=== PATIENT | female | born 1995 | race Asian ===

== ENCOUNTER 2019-06-08 15:17 | Day surgery (SDC) | payer OTHER ==
[~2019-06-08 15:17] MED LIST: Atropine Sulfate 1% Ophth Ointment 3.5 gm Tube ONE; Bupivacaine PF 0.75% SDV 10 ML ONE; Dexamethasone 20 MG/5 ML VIAL ONE; Lidocaine 1% PF 5 ML VIAL ONE; Lidocaine 4% PF 5 ML AMP ONE; Maxitrol 0.1% Opth Oint 3.5 GM TUBE ONE; Ondansetron PF 4 MG/2 ML Vial ONE; PROPOFOL 200 MG/20 ML VIAL ONE; Triamcinolone 40 MG/ML VIAL ONE
[2019-06-08] MEDS ORDERED: Cyclopentolate 1% Opth Drop 2 ML BOT FS SCH (15:37)
[2019-06-08] MEDS ORDERED: Phenylephrine 2.5% Ophth Soln 5 ML BOT FS SCH (15:37)
[2019-06-08] MEDS ORDERED: Cyclopentolate 1% Opth Drop 2 ML BOT ONE (15:51)
[2019-06-08] MEDS ORDERED: Phenylephrine 2.5% Ophth Soln 5 ML BOT ONE (15:51)
[2019-06-08 15:53] LABS: BHCG - Serum Negative (NEGATIVE); Pregs Control Background? CLEAR/WHITE (CLR/WHITE); Pregs Control Bar Appear? YES (CONTROL BAR)
[2019-06-08] MEDS ORDERED: Midazolam HCl 2 mg/2 ml Vial ONE (16:41)
[2019-06-08] MEDS ORDERED: Fentanyl 100 MCG/2 ML VIAL ONE (17:31)
[2019-06-08] MEDS ORDERED: Famotidine/PF 20 mg/2ml Vial ONE (17:50)
--- NOTE | 2019-06-08 20:31 | OP ---
DATE OF PROCEDURE: 06/08/2019 PREOPERATIVE DIAGNOSES: Rhegmatogenous retinal detachment, left eye; lattice degeneration, right eye. PROCEDURES PERFORMED: Scleral buckle, left eye and indirect laser to lattice degeneration, right eye. ANESTHESIA: General endotracheal anesthesia. DESCRIPTION OF PROCEDURE: The patient was identified in the preoperative holding area. Appropriate informed consent for the planned surgical procedure on both eyes was obtained. The patient was taken to the operative suite, where general endotracheal anesthesia was initiated. Retrobulbar block was placed in the left eye. 360 laser was placed using indirect laser delivery device in the right eye for a total of 645 spots. In the left eye, conjunctiva was prepped and draped in usual sterile manner for ophthalmic surgery. Conjunctival peritomy was created 360, and 3 spots of cryo were placed over the inferior break. A #42 band was encircled around the eye and ligated end-to-end with 3083 sleeve, fixated in place in oblique quadrants using 5-0 Mersilene suture. Position of the buckle was optimized. Retrobulbar Kenalog and subconjunctival Ancef were placed. Antibiotic and atropine ointments were placed. The eye was patched and shielded. The patient was taken to postoperative recovery unit in good condition having suffered no immediate perioperative complications. The patient had been advised to position the head up and then followup appointment with Dr. Saleem. Job ID: [id number]
== END 2019-06-08 21:20 | disposition home or self-care (01) ==
LOC: SDC 15:17
PROVIDERS: ATTEND Ophthalmology Retina Specialist
PROC: 08U13JZ Supplement of Left Eye with Synthetic Substitute, Percutaneous Approach (ICD-10-PCS; principal; 2019-06-08)
PROC: 08QE3ZZ Repair Right Retina, Percutaneous Approach (ICD-10-PCS; principal; 2019-06-08)
DX: H33.002 Unspecified retinal detachment with retinal break, left eye (principal); H35.411 Lattice degeneration of retina, right eye
CPT/HCPCS: 36415; 84703; J1100; J2001; J2250; J2405; J2704; J3010; J3301; J3490; S0028